=== PATIENT | male | born 1995 | race Caucasian/White ===

== ENCOUNTER 2017-03-06 12:40 | Emergency (ER) | payer SELFPAY ==
[~2017-03-06] VITALS: Ht 200.7 cm; Wt 121.5 kg
[~2017-03-06 12:40] MED LIST: NO HOME MEDICATIONS
[2017-03-06 12:44] VITALS: BP 171/89; PULSE 103; TEMP 97.6
== END 2017-03-06 14:09 | disposition home or self-care (01) ==
LOC: COL.ER 12:40
DX: S61.412A Laceration without foreign body of left hand, initial encounter (principal); Z23 Encounter for immunization; W26.8XXA Contact with other sharp object(s), not elsewhere classified, initial encounter; Y92.69 Other specified industrial and construction area as the place of occurrence of the external cause; Y99.0 Civilian activity done for income or pay

== ENCOUNTER 2019-06-20 13:21 | Emergency (ER) | payer BC ==
[~2019-06-20] VITALS: Ht 200.7 cm; Wt 117.7 kg
[2019-06-20 13:53] VITALS: BP 142/97; TEMP 99
[2019-06-20 17:29] VITALS: PULSE 75
== END 2019-06-20 17:30 | disposition home or self-care (01) ==
LOC: COL.ER 13:21
DX: R42 Dizziness and giddiness (principal); F17.220 Nicotine dependence, chewing tobacco, uncomplicated